=== PATIENT | female | born 1975 | race Hispanic/Latino ===

== ENCOUNTER 2022-03-03 07:02 | Day surgery (SDC) | payer OTHER ==
[2022-02-27] MEDS: CEFAZOLIN SODIUM 1 GM VIAL IVP SCH (07:30)
[2022-02-27 11:09] LABS: BASOPHILS % (AUTO) 0.5 % (0.0-5.0); EOSINOPHILS % (AUTO) 1.9 % (0.0-8.0); HEMATOCRIT 38.6 % (36-48); LYMPHOCYTES % (AUTO) 22.6 % (21.0-51.0); MEAN CORPUSCULAR HEMOGLOBIN 25.3 pg (27.0-33.0); MEAN CORPUSCULAR HGB CONC 31.1 g/dL (32.0-36.0); MEAN CORPUSCULAR VOLUME 81.3 fL (79-99); MONOCYTES % (AUTO) 7.7 % (3.0-13.0); PLATELET COUNT (AUTO) 260 K/uL (130-400); RED BLOOD CELL COUNT(AUTO) 4.75 MIL/uL (4.00-5.50); RED CELL DISTRIBUTION WIDTH 14.1 % (11.0-15.5); WHITE BLOOD COUNT (AUTO) 6.4 K/uL (4.8-10.8)
[2022-02-27 11:21] LABS: CREATININE 0.6 mg/dL (0.5-1.5); POTASSIUM 3.7 mmol/L (3.5-5.1)
[2022-02-27 11:46] LABS: INR 0.94 (0.85-1.15); PROTHROMBIN TIME 10.3 SEC (9.6-11.6)
[2022-03-02 11:00] VITALS: BP 137/81
[2022-03-03] VITALS (20 sets, daily range): BP systolic 104–134; BP diastolic 57–77
[~2022-03-03] VITALS: Ht 152.4 cm; Wt 77.8 kg
[~2022-03-03 07:02] MED LIST: 0.9%NACL 1000ML 1,000 ML IV SCH; IBUP-2077 PO
[2022-03-03] MEDS ORDERED: LACTATED RINGERS 1000ML 1,000 ML IV ONE (07:28)
[2022-03-03] MEDS ORDERED: LIDOCAINE PF 100MG/5ML (2%) SYRINGE 5ML ONE (07:38)
[2022-03-03] MEDS ORDERED: BUPIVACAINE/PF 0.5% 30ML VIAL ONE (07:38)
[2022-03-03] MEDS ORDERED: PROPOFOL 10 MG/ML 20ML VIAL IV ONE (07:39)
[2022-03-03] MEDS ORDERED: ONDANSETRON 4MG INJ ONE (07:40)
[2022-03-03] MEDS ORDERED: ROCURONIUM 10MG/1ML SYR 10 MG/ML ML ONE ×2 (07:40→09:22)
[2022-03-03] MEDS ORDERED: FENTANYL CITRATE PF 50 MCG/1 ML 2ML VIAL ONE ×2 (07:40→11:18)
[2022-03-03] MEDS ORDERED: MIDAZOLAM HCL 1 MG/ML 2ML VIAL ONE (07:40)
[2022-03-03] MEDS ORDERED: HYDROMORPHONE 1 MG INJ ONE (08:30)
[2022-03-03] MEDS: CEFAZOLIN SODIUM 1 GM VIAL IVP SCH (08:44)
[2022-03-03] MEDS ORDERED: EPHEDRINE SULFATE 50 MG/ML AMPULE ONE (09:29)
[2022-03-03] MEDS ORDERED: KETOROLAC 30MG VIAL (30MG/ML) ONE (11:20)
[2022-03-03] MEDS ORDERED: GLYCOPYRROLATE 1 MG/5 ML SYRINGE ONE (11:23)
[2022-03-03] MEDS ORDERED: METOCLOPRAMIDE 10 MG/2 ML VIAL ONE (11:24)
[2022-03-03] MEDS ORDERED: NEOSTIGMINE 5MG/5ML SYR IV ONE (11:24)
== END 2022-03-03 14:45 | disposition home or self-care (01) ==
LOC: DAH 07:02
PROVIDERS: ATTEND Surgery
DX: K43.2 Incisional hernia without obstruction or gangrene (principal); E66.01 Morbid (severe) obesity due to excess calories; Z79.01 Long term (current) use of anticoagulants; Z79.899 Other long term (current) drug therapy; Z90.49 Acquired absence of other specified parts of digestive tract; Z98.890 Other specified postprocedural states; Z98.51 Tubal ligation status; Z87.891 Personal history of nicotine dependence; Z68.33 Body mass index [BMI] 33.0-33.9, adult
CPT/HCPCS: 36415; 49654; 64486; 71045; 80048; 85025; 85610; 87635; 93005; A4215; A4221; A4222; A4223; A4600; A4663; A6260; C1781; C9803; G0168; J0690; J1170; J1885; J2001; J2250; J2405; J2704; J2710; J2765; J3010 ×2; J3490 ×3; J7030; J7120 ×2; S2900